=== PATIENT | male | born 1960 | race Two or more races ===

== ENCOUNTER 2019-12-22 10:41 | Emergency (ER) | payer MEDICARE, OTHER ==
[~2019-12-22] VITALS: Ht 172.7 cm; Wt 74.8 kg
--- NOTE | 2019-12-22 10:41 | NUR ---
NHUNG DESAI FROM [facility] C/O DIZZINESS, PT IS AAOX3, NOT IN RESPIRATORY DISTRESS, HOOKED TO CARDIOGRAPHER, KEPT RESTED AND COMFORTABLE. WILL CONTINUE TO MONITOR.
--- NOTE | 2019-12-22 11:05 | NUR ---
PT IV LINE ESTABLISHED BLOOD DRAWN AND SENT TO LAB
--- NOTE | 2019-12-22 11:10 | NUR ---
SEEN AND EXAMINED BY .
[2019-12-22 11:37] LABS: BASOPHILS % (AUTO) 0.3 % (0.0-2.0); EOSINOPHILS % (AUTO) 0.1 % (0.0-6.0); HEMATOCRIT 45 % (39-51); HEMOGLOBIN 15.1 g/dL (13.5-17.5); LYMPHOCYTES # (AUTO) 1.6 /CMM (0.8-4.8); LYMPHOCYTES % (AUTO) 28.3 % (20.0-44.0); MEAN CORPUSCULAR HGB CONC 34 g/dl (31.0-36.0); MEAN CORPUSCULAR VOLUME 91 fL (80-96); MONOCYTES # (AUTO) 0.6 /CMM (0.1-1.30); MONOCYTES % (AUTO) 10.8 % (2.0-12.0); NEUTROPHILS # (AUTO) 3.4 /CMM (1.8-8.9); NEUTROPHILS % (AUTO) 60.5 % (43.0-81.0); PLATELET COUNT (AUTO) 160 /CMM (150-450); RED BLOOD CELL COUNT(AUTO) 4.91 MIL/uL (4.5-6.0); WHITE BLOOD COUNT (AUTO) 5.6 K/uL (4.3-11.0)
--- NOTE | 2019-12-22 11:45 | NUR ---
COVID SWAB OBTAINED AND SENT TO LAB.
[2019-12-22 11:50] LABS: ALANINE AMINOTRANSFERASE 49 U/L (12-78); ALBUMIN 3.6 g/dL (3.4-5.0); ALKALINE PHOSPHATASE 82 U/L (46-116); ASPARTATE AMINOTRANSFERASE 31 U/L (15-37); BILIRUBIN,DIRECT 0.1 mg/dL (0.0-0.2); BILIRUBIN,TOTAL 0.3 mg/dL (0.2-1.0); CALCIUM, SERUM 8.4 mg/dL (8.5-10.1); CARBON DIOXIDE 28 mmol/L (21-32); CHLORIDE 103 mmol/L (98-107); CREATININE 1.2 mg/dL (0.6-1.3); GLUCOSE 187 mg/dL (74-106); POTASSIUM 3.6 mmol/L (3.5-5.1); SODIUM SERUM 139 mmol/L (136-145); TOTAL PROTEIN, SERUM 7.7 g/dL (6.4-8.2); UREA NITROGEN, BLOOD 17 mg/dL (7-18)
--- NOTE | 2019-12-22 11:52 | NUR ---
SE[employer] AS[employer] AT BEDSIDE FOR XRAY.
--- NOTE | 2019-12-22 12:35 | NUR ---
CALLED FOR TRANSPORT ETA 1315 PER WALTER
--- NOTE | 2019-12-22 12:37 | NUR ---
REPORT GIVEN TO MICHELLE SMYTH OF [facility].
--- NOTE | 2019-12-22 13:24 | NUR ---
CALLED DR PINTO'S OFFICE, REQUESTING CALL BACK
--- NOTE | 2019-12-22 13:43 | NUR ---
CALLED MILLIE [phone] WILL CALL US BACK.
--- NOTE | 2019-12-22 13:57 | NUR ---
CALLED CASE MANAGEMENT NO ANSWER.
--- NOTE | 2019-12-22 14:09 | NUR ---
SPOKED TO [employer] SH[facility]ON[facility] FOR PLACEMENT. WILL CALL BACK.
[2019-12-22] MEDS ORDERED: ACETAMINOPHEN ES 500 MG TABLET ONE (15:05)
--- NOTE | 2019-12-22 15:08 | NUR ---
ASSESSED PT ON BED AAOX4, NOT IN RESPIRATORY DISTRESS, V/S STABLE, KEPT RESTED AND COMFORTABLE. WILL CONTINUE TO MONITOR. AWAITING AMBULANCE FOR PT TRANSFER TO [facility].
[2019-12-22] MEDS ORDERED: ACETAMINOPHEN ES 500 MG TABLET PO ONE (15:30)
--- NOTE | 2019-12-22 17:17 | NUR ---
WHITNEY BRUNO WILL BE HERE AT 1730 TO TRANSPORT PER RUCHI.
[2019-12-22 17:47] VITALS: BP 151/82
--- NOTE | 2019-12-22 18:03 | NUR ---
REPORT GIVEN TO EMT FOR PT TRANSFER TO [facility].
== END 2019-12-22 18:10 ==
LOC: ER 10:50
DX: U07.1 COVID-19 (principal); R42 Dizziness and giddiness; I49.5 Sick sinus syndrome; Z95.810 Presence of automatic (implantable) cardiac defibrillator; F03.90 Unspecified dementia, unspecified severity, without behavioral disturbance, psychotic disturbance, mood disturbance, and anxiety
CPT/HCPCS: 36415; 71045-TC; 80048-TC; 80076-TC; 84484-TC; 85025-TC